=== PATIENT | female | born 1975 | race Caucasian/White ===

== ENCOUNTER 2021-01-11 16:45 | Emergency (ER) | payer SELFPAY ==
[2021-01-11 16:56] VITALS: BP 123/76; PULSE 65; TEMP 98.5; BMI 28.7
[2021-01-11] MEDS ORDERED: ACETAMINOPHEN 500 MG TABLET (FP) PO ONE (17:44)
[2021-01-11] MEDS ORDERED: ACETAMINOPHEN 500 MG TABLET (FP) ONE (17:45)
== END 2021-01-11 18:48 | disposition home or self-care (01) ==
LOC: JERFT 16:45
DX: M54.5 Low back pain (principal)
CPT/HCPCS: 99283-25

== ENCOUNTER 2022-07-04 01:15 | Emergency (ER) | payer OTHER ==
[2022-07-04 01:23] VITALS: BP 149/68; PULSE 78; RESP 18; TEMP 98.2; BMI 29.3
[2022-07-04] MEDS ORDERED: LACTATED RINGERS SOLUTION 1000 ML INFUS.BAG IV ONE (02:39)
[2022-07-04 03:39] LABS: EPI CELLS 12 /uL (0-25.1); HYALINE CASTS 14 /uL (0-3.1); URINE APPEARANCE CLOUDY; URINE BACTERIA 254 /uL (0-1359); URINE BILIRUBIN NEGATIVE (NEGATIVE); URINE COLOR ORANGE; URINE GLUCOSE (UA) NEGATIVE (NEGATIVE); URINE KETONE NEGATIVE (NEGATIVE); URINE LEUK ESTERASE 3+ (NEGATIVE); URINE NITRITE NEGATIVE (NEGATIVE); URINE PROTEIN 2+ (NEGATIVE); URINE RBC 1984 /uL (0-23.9); URINE UROBILINOGEN 0.2 mg/dL (0.2-1.0); URINE WBC 1759 /uL (0-25.8)
== END 2022-07-04 04:03 | disposition home or self-care (01) ==
LOC: JER 01:15
DX: N39.0 Urinary tract infection, site not specified (principal)
CPT/HCPCS: 81003; 84703; 87086; 87186; 99283-25